=== PATIENT | female | born 1975 | race Caucasian/White ===

== ENCOUNTER 2016-08-17 16:37 | Emergency (ER) | payer OTHER ==
[~2016-08-17] VITALS: Ht 170.2 cm; Wt 87.8 kg
[2016-08-17 16:44] VITALS: TEMP 38.1; Ht 170.2 cm; Wt 87.8 kg
[2016-08-17] MEDS ORDERED: VNTHFA/IN INH (17:01)
[2016-08-17] MEDS ORDERED: LEVOTHYROXINE PO (17:01)
[2016-08-17] MEDS ORDERED: MONT1TAB3 PO (17:01)
[2016-08-17] MEDS ORDERED: OXYCODONE/ACETAMINOPHEN 5-325 TAB PO STA (17:09)
--- NOTE | 2016-08-17 18:11 | DIAGNOSTIC IMAGING REPORT ---
CHEST 2 VIEWS ROUTINE CLINICAL HISTORY: Cough. Sore throat. COMPARISON STUDY: No previous studies for comparison. FINDINGS: Lung volumes are normal. Lungs are clear. Pulmonary vascularity is normal. There is no pneumothorax or pleural effusion. Cardiomediastinal silhouette is normal. IMPRESSION: No acute cardiopulmonary findings. Electronically signed by: Joel Drake M.D. 08/17/2016 6:09 PM Dictated Date/Time: 08/17/2016 6:08 PM
[2016-08-17 18:58] LABS: INFLUENZA A PCR Neg for Influ A (NEG); INFLUENZA B PCR Neg for Influ B (NEG)
[2016-08-17 19:18] VITALS: BP 107/69; PULSE 88; O2SAT 93
[2016-08-17] MEDS ORDERED: AZITTAB PO (19:20)
[2016-08-17] MEDS ORDERED: AZITHROMYCIN 250 MG TAB PO STA (19:21)
--- NOTE | 2016-08-17 19:21 | EMERGENCY ROOM VISIT NOTE ---
History Report prepared by Bobbyibtho: Karina Thomas Under the Supervision of: Dr. Boris Dorman D.O. First contact with patient: 17:02 Chief Complaint: THROAT PAIN/INJURY Stated Complaint: UPPER CHEST/ESOPHOGUS PAIN,PAIN WHEN SWALLOWING History of Present Illness The patient is a 41 year old female who presents to the Emergency Room with complaints of persistent upper chest pain that began 2 days ago. The discomfort was initially a pressure which gradually became more painful. She has since developed throat pain and difficulty swallowing. Her throat pain worsens when she tries to swallow. Yesterday, the patient developed a fever. She went to Urgent Care for evaluation and her temperature was 103. She was told that her symptoms were related to a flu-like virus. This morning, her fever seemed to break, but her pain continued. Source of History: patient Onset: 2 days ago Position: chest (upper) Timing: other (persistent) Associated Symptoms: + fevers Note: Other symptoms: throat pain Review of Systems See HPI for pertinent positives & negatives. A total of 10 systems reviewed and were otherwise negative. Past Medical & Surgical Medical Problems: (1) Bronchitis Family History No pertinent family history stated. Social History Smoking Status: Current Every Day Smoker Marital Status: single Occupation Status: employed Current/Historical Medications Scheduled Albuterol Hfa (Ventolin Hfa), 2-4 PUFFS INH Q6H Azithromycin (Zithromax Z-Janak), 0 PO UD Montelukast Sodium (Singulair), 10 MG PO QPM [Levothyroxine], 1 TAB PO QAM Allergies Coded Allergies: No Known Allergies (Unverified , 08/17/16) Physical Exam Vital Signs Date Time Temp Pulse Resp B/P Pulse Ox O2 Delivery O2 Flow Rate FiO2 08/17/16 19:18 88 16 107/69 93 Room Air 08/17/16 17:49 95 16 93/65 96 Room Air 08/17/16 17:07 Room Air 08/17/16 16:44 38.1 99 20 137/82 95 Room Air Physical Exam CONSTITUTIONAL/VITAL SIGNS: Reviewed / noted above. GENERAL: Non-toxic in appearance. INTEGUMENTARY: Warm, dry, and [place]. HEAD: Normocephalic. EYES: without scleral icterus or trauma. ENT/OROPHARYNX: Mild posterior oropharyngeal erythema. LYMPHADENOPATHY/NECK: Is supple without lymphadenopathy or meningismus. RESPIRATORY: Lungs clear and equal. CARDIOVASCULAR: Regular rate and rhythm. GI/ABDOMEN: Soft and nontender. No organomegaly or pulsatile mass. No rebound or guarding. Normal bowel sounds. EXTREMITIES: Warm and well perfused. BACK: No CVA tenderness. NEUROLOGICAL: Intact without focal deficits. PSYCHIATRIC: normal affect. MUSCULOSKELETAL: Normally developed with good muscle tone. Medical Decision & Procedures ER Provider Diagnostic Interpretation: X ray results and stated below per my interpretation and radiology interpretation. CHEST 2 VIEWS ROUTINE CLINICAL HISTORY: Cough. Sore throat. COMPARISON STUDY: No previous studies for comparison. FINDINGS: Lung volumes are normal. Lungs are clear. Pulmonary vascularity is normal. There is no pneumothorax or pleural effusion. Cardiomediastinal silhouette is normal. IMPRESSION: No acute cardiopulmonary findings. Electronically signed by: Joel Drake M.D. 08/17/2016 6:09 PM Dictated Date/Time: 08/17/2016 6:08 PM Laboratory Results Test 08/17/16 17:10 Influenza Type A (RT-PCR) Neg for Influ A (NEG) Influenza Type B (RT-PCR) Neg for Influ B (NEG) Laboratory results as stated above per my review. Medications Administered Medications (Trade) Dose Ordered Sig/Jared Route Start Time Stop Time Status Last Admin Dose Admin Oxycodone/ Acetaminophen (Percocet 5-325mg Tab) 1 tab NOW STAT PO 08/17/16 17:09 08/17/16 17:11 DC 08/17/16 17:17 1 TAB Azithromycin (Zithromax Tab) 500 mg NOW STAT PO 08/17/16 19:21 08/17/16 19:22 DC 08/17/16 19:32 500 MG ED Course 1704: The patient was evaluated in room C8. A complete history and physical examination was performed. 1708: Ordered Oxycodone/Acetaminophen 1 tab PO. 1920: Ordered Azithromycin 500 mg PO. 1930: On reevaluation, the patient is resting comfortably. I discussed the results and findings with the patient. She verbalized agreement of the treatment plan. The patient was discharged home. Medical Decision Differential includes viral illness, influenza, streptococcal pharyngitis, meningitis, pneumonia, sinusitis, UTI, pyelonephritis, otitis media. This is a 41-year-old female who presents to the ED with a chief complaint of a sore throat and chest pain. The patient has a temperature of 38.1. Her throat is mildly erythematous but without exudate. Strep test was negative. Lungs were clear. A chest x-ray did not show any acute disease. Flu swab was negative. Patient's symptoms appear to be viral in origin. She is felt to be stable for discharge. Because of her continued symptoms, she was placed on Zithromax. Impression Primary Impression: Bronchitis Scribe Attestation The scribe's documentation has been prepared under my direction and personally reviewed by me in its entirety. I confirm that the note above accurately reflects all work, treatment, procedures, and medical decision making performed by me. Departure Information Dispostion Home / Self-Care Prescriptions Azithromycin (ZITHROMAX Z-JANAK) 250 Mg Tab 0 PO UD, #1 PKT 2 TABS DAY 1, THEN 1 TAB DAILY FOR 4 DAYS Prov: Boris Dorman D.O. 08/17/16 Referrals Pavan Bray D.O. (PCP) Patient Instructions Bronchitis Acute, My [facility] Additional Instructions Your symptoms are likely related to bronchitis. Zithromax as prescribed. Take Tylenol as needed for discomfort or fever.
== END 2016-08-17 19:46 | disposition home or self-care (01) ==
LOC: C.EDB 16:38 → C.EDC 19:46
DX: J40 Bronchitis, not specified as acute or chronic (principal); F17.200 Nicotine dependence, unspecified, uncomplicated

== ENCOUNTER 2016-08-19 13:53 | Emergency (ER) | payer OTHER ==
[~2016-08-19] VITALS: Ht 162.6 cm; Wt 85.9 kg
[~2016-08-19 13:53] MED LIST: AZITTAB PO; LEVOTHYROXINE PO; MONT1TAB3 PO; VNTHFA/IN INH
[2016-08-19 13:57] VITALS: Ht 162.6 cm; Wt 85.9 kg
[2016-08-19] MEDS ORDERED: SODIUM CHLORIDE 0.9% 1000ML 1,000 ML IV ONE (15:30)
[2016-08-19 16:12] LABS: BASO % 0.2 %; BASO ABS # 0.01 K/uL (0-0.2); COMPLETE YES; EOS % 0.2 %; HEMATOCRIT 42.9 % (37-47); IG% 0.2 %; LYMPH % 22.3 %; LYMPH ABS # 1.35 K/uL (1.2-3.4); MEAN CELL VOLUME 93.3 fL (80-100); MEAN CORPUSCULAR HEMOGLOBIN 32.4 pg (25-34); MEAN CORPUSCULAR HGB CONC 34.7 g/dl (32-36); MEAN PLATELET VOLUME 9.5 fL (7.4-10.4); MONO % 16.8 %; NEUT % 60.3 %; PLATELET COUNT 186 K/uL (130-400); WHITE BLOOD COUNT 6.06 K/uL (4.8-10.8)
[2016-08-19 16:29] LABS: BUN/CREATININE RATIO 15.9 (10-20); CALCIUM 9.1 mg/dl (8.5-10.1); CREATININE 0.8 mg/dl (0.60-1.20); POTASSIUM 3.8 mmol/L (3.5-5.1)
[2016-08-19] MEDS ORDERED: OPTIRAY 320 IV PRN (16:30)
[2016-08-19 16:32] LABS: ALB/GLOB RATIO 0.9 (0.9-2)
--- NOTE | 2016-08-19 16:40 | DIAGNOSTIC IMAGING REPORT ---
TWO VIEW CHEST CLINICAL HISTORY: Atypical chest pain. FINDINGS: PA and lateral chest radiographs are compared to study dated 08/17/2016. The cardiomediastinal silhouette is unremarkable. The lungs and pleural spaces are clear. There is no pneumothorax. The bony thorax appears intact. IMPRESSION: No active disease in the chest. Electronically signed by: Efra Nunez M.D. 08/19/2016 4:38 PM Dictated Date/Time: 08/19/2016 4:36 PM
--- NOTE | 2016-08-19 17:54 | DIAGNOSTIC IMAGING REPORT ---
CT ANGIOGRAM OF THE CHEST CLINICAL HISTORY: Atypical chest pain. COMPARISON STUDY: Chest x-ray dated 08/19/2016. TECHNIQUE: Following the IV administration of 78 cc of Optiray 320, CT angiogram of the chest was performed from the upper abdomen to the thoracic inlet utilizing the pulmonary embolus protocol. Images are reviewed in the axial, sagittal, and coronal planes. 3-D MIPS images are created and assessed. IV contrast was administered without complication. CT DOSE: 425.28 mGy.cm FINDINGS: Thyroid: Imaged portions of the thyroid gland are normal in size and attenuation. Thoracic aorta: The thoracic aorta is normal in caliber and demonstrates standard 3-vessel arch anatomy. No dissection is seen. Pulmonary vasculature: The pulmonary trunk is normal in caliber. There are no filling defects identified in main, lobar, or segmental pulmonary branches to suggest pulmonary embolus. Heart: The heart is normal in size and configuration, and without pericardial effusion. Lungs and pleural spaces: There is a trace right pleural effusion with foci of bibasilar atelectasis. No airspace consolidation is seen typical for pneumonia. Mild diffuse peribronchial thickening is noted. The trachea and central airways are clear. Mediastinum: There is no mediastinal lymphadenopathy. A prominent lymph node posterior to the esophagus and just above the esophageal hiatus is seen on image #78 and measures 9 mm short axis. Fatoumata: Clear. Axillae: There is no axillary lymphadenopathy. Upper abdomen: Numerous gallstones are identified. There is a small to moderate hiatal hernia. Wall thickening is suggested in the distal esophagus. There are mildly enlarged gastrohepatic lymph nodes which measure up to 1.3 cm in short axis Skeletal structures: No lytic or blastic bony lesions are seen. IMPRESSION: 1. There is no evidence of pulmonary embolus in the main, lobar, or segmental pulmonary arteries. 2. There is a trace right pleural effusion. No airspace consolidation is seen typical for pneumonia. Mild diffuse periosteal thickening suggests regular disease. Clinical correlation will be required. 3. There is a small to moderate hiatal hernia. Nonspecific stranding is suggested around the proximal stomach and there are mildly enlarged gastrohepatic lymph nodes. Additionally, wall thickening suggested in the distal esophagus. Correlate clinically for evidence of gastroesophagitis. GI follow-up is recommended. If further assessment is desired then endoscopy would be appropriate. 4. Cholelithiasis. Electronically signed by: Efra Nunez M.D. 08/19/2016 5:53 PM Dictated Date/Time: 08/19/2016 5:47 PM
[2016-08-19] MEDS ORDERED: GI COCKTAIL PO ONE (18:45)
[2016-08-19] MEDS ORDERED: LIDOCAINE HCL 2% VISC SOLN 20 ML UDC ONE (18:52)
[2016-08-19] MEDS ORDERED: ALUMINUM/MAGNESIUM SUSP 30 ML UDC ONE (18:52)
[2016-08-19 19:05] VITALS: BP 130/81; PULSE 85; O2SAT 97
--- NOTE | 2016-08-19 22:00 | EMERGENCY ROOM VISIT NOTE ---
History First contact with patient: 15:15 Chief Complaint: ILLNESS Stated Complaint: PAIN WHEN SWALLOWING, TROUBLE SPEAKING/BREATHING History of Present Illness The patient is a 41 year old female who presents to the Emergency Room with complaints of central chest pain for the past several days. The patient was initially seen and evaluated in the emergency department about 2 days ago where she was diagnosed with bronchitis. She was started on Zithromax. The patient states that she is having worsening of her symptoms. She describes it as a tightness in her central lower chest. The patient also states that she has pain when swallowing and trouble with deep breathing. She does not report significant fever or chills. The patient rates her overall discomfort a 5/10. She does not have recent travel history and is not on control. She does not have known exposure to disease. Her pain does not radiate. Review of Systems More than 10 systems were reviewed and otherwise negative with the exception of history of present illness. Past Medical/Surgical History Medical Problems: (1) Bronchitis Family History No pertinent family history Social History Smoking Status: Current Every Day Smoker Marital Status: single Occupation Status: employed Current/Historical Medications Scheduled Albuterol Hfa (Ventolin Hfa), 2-4 PUFFS INH Q6H Azithromycin (Zithromax Z-Janak), 0 PO UD Montelukast Sodium (Singulair), 10 MG PO QPM [Levothyroxine], 1 TAB PO QAM Allergies Coded Allergies: No Known Allergies (Unverified , 08/19/16) Physical Exam Vital Signs Date Time Temp Pulse Resp B/P Pulse Ox O2 Delivery O2 Flow Rate FiO2 08/19/16 19:05 85 20 130/81 97 08/19/16 17:42 79 18 122/77 98 Room Air 08/19/16 15:55 88 20 119/64 98 Room Air 08/19/16 13:57 37.3 91 18 136/86 96 Room Air Physical Exam VITALS: Vitals are noted on the nurse's note and reviewed by myself. Vital signs stable. GENERAL: Well-developed, well-nourished, white female, who is in no acute distress and resting comfortably. Patient is cooperative with the examination. HEAD: Normocephalic atraumatic. EARS: External ear normal. External auditory canals clear, tympanic membranes pearly johnson without erythema or effusion bilaterally. EYES: Pupils equal round and reactive to light and accommodation. Conjunctivae without injection, sclerae without icterus. Extraocular movements intact. NOSE: Patent, turbinates without inflammation or discharge. MOUTH: Mucous membranes moist. Tonsils are not enlarged. Pharynx without erythema, blood, or exudate. Uvula midline. Airway patent. NECK: Supple without nuchal rigidity. No lymphadenopathy. No thyromegaly. Cervical spine is nontender. HEART: Regular rate and rhythm without murmurs gallops or rubs. LUNGS: Clear to auscultation bilaterally without wheezes, rales or rhonchi. No retractions or accessory muscle use. ABDOMEN: Positive normal bowel sounds x 4. Soft with mild epigastric tenderness on palpation. No rebound or guarding. No lower abdominal tenderness. MUSCULOSKELETAL: No muscle atrophy, erythema, or edema noted. Full range of motion without joint tenderness in all extremities. Medical Decision & Procedures ER Provider Diagnostic Interpretation: TWO VIEW CHEST CLINICAL HISTORY: Atypical chest pain. FINDINGS: PA and lateral chest radiographs are compared to study dated 08/17/2016. The cardiomediastinal silhouette is unremarkable. The lungs and pleural spaces are clear. There is no pneumothorax. The bony thorax appears intact. IMPRESSION: No active disease in the chest. CT ANGIOGRAM OF THE CHEST CLINICAL HISTORY: Atypical chest pain. COMPARISON STUDY: Chest x-ray dated 08/19/2016. TECHNIQUE: Following the IV administration of 78 cc of Optiray 320, CT angiogram of the chest was performed from the upper abdomen to the thoracic inlet utilizing the pulmonary embolus protocol. Images are reviewed in the axial, sagittal, and coronal planes. 3-D MIPS images are created and assessed. IV contrast was administered without complication. CT DOSE: 425.28 mGy.cm FINDINGS: Thyroid: Imaged portions of the thyroid gland are normal in size and attenuation. Thoracic aorta: The thoracic aorta is normal in caliber and demonstrates standard 3-vessel arch anatomy. No dissection is seen. Pulmonary vasculature: The pulmonary trunk is normal in caliber. There are no filling defects identified in main, lobar, or segmental pulmonary branches to suggest pulmonary embolus. Heart: The heart is normal in size and configuration, and without pericardial effusion. Lungs and pleural spaces: There is a trace right pleural effusion with foci of bibasilar atelectasis. No airspace consolidation is seen typical for pneumonia. Mild diffuse peribronchial thickening is noted. The trachea and central airways are clear. Mediastinum: There is no mediastinal lymphadenopathy. A prominent lymph node posterior to the esophagus and just above the esophageal hiatus is seen on image #78 and measures 9 mm short axis. Fatoumata: Clear. Axillae: There is no axillary lymphadenopathy. Upper abdomen: Numerous gallstones are identified. There is a small to moderate hiatal hernia. Wall thickening is suggested in the distal esophagus. There are mildly enlarged gastrohepatic lymph nodes which measure up to 1.3 cm in short axis Skeletal structures: No lytic or blastic bony lesions are seen. IMPRESSION: 1. There is no evidence of pulmonary embolus in the main, lobar, or segmental pulmonary arteries. 2. There is a trace right pleural effusion. No airspace consolidation is seen typical for pneumonia. Mild diffuse periosteal thickening suggests regular disease. Clinical correlation will be required. 3. There is a small to moderate hiatal hernia. Nonspecific stranding is suggested around the proximal stomach and there are mildly enlarged gastrohepatic lymph nodes. Additionally, wall thickening suggested in the distal esophagus. Correlate clinically for evidence of gastroesophagitis. GI follow-up is recommended. If further assessment is desired then endoscopy would be appropriate. 4. Cholelithiasis. Laboratory Results 08/19/16 15:56 Red Blood Count 4.60, Mean Corpuscular Volume 93.3, Mean Corpuscular Hemoglobin 32.4, Mean Corpuscular Hemoglobin Concent 34.7, Mean Platelet Volume 9.5, Neutrophils (%) (Auto) 60.3, Lymphocytes (%) (Auto) 22.3, Monocytes (%) (Auto) 16.8, Eosinophils (%) (Auto) 0.2, Basophils (%) (Auto) 0.2, Neutrophils # (Auto ) 3.66, Lymphocytes # (Auto) 1.35, Monocytes # (Auto) 1.02, Eosinophils # (Auto ) 0.01, Basophils # (Auto) 0.01 08/19/16 15:56 Test 08/19/16 15:56 08/19/16 16:02 White Blood Count 6.06 K/uL (4.8-10.8) Red Blood Count 4.60 M/uL (4.2-5.4) Hemoglobin 14.9 g/dL (12.0-16.0) Hematocrit 42.9 % (37-47) Mean Corpuscular Volume 93.3 fL (80-100) Mean Corpuscular Hemoglobin 32.4 pg (25-34) Mean Corpuscular Hemoglobin Concent 34.7 g/dl (32-36) Platelet Count 186 K/uL (130-400) Mean Platelet Volume 9.5 fL (7.4-10.4) Neutrophils (%) (Auto) 60.3 % Lymphocytes (%) (Auto) 22.3 % Monocytes (%) (Auto) 16.8 % Eosinophils (%) (Auto) 0.2 % Basophils (%) (Auto) 0.2 % Neutrophils # (Auto) 3.66 K/uL (1.4-6.5) Lymphocytes # (Auto) 1.35 K/uL (1.2-3.4) Monocytes # (Auto) 1.02 K/uL (0.11-0.59) Eosinophils # (Auto) 0.01 K/uL (0-0.5) Basophils # (Auto) 0.01 K/uL (0-0.2) RDW Standard Deviation 45.5 fL (36.4-46.3) RDW Coefficient of Variation 13.3 % (11.5-14.5) Immature Granulocyte % (Auto) 0.2 % Immature Granulocyte # (Auto) 0.01 K/uL (0.00-0.02) Anion Gap 13.0 mmol/L (3-11) Est Creatinine Clear Calc Drug Dose 100.2 ml/min Estimated GFR () 107.6 Estimated GFR (Non- 92.9 BUN/Creatinine Ratio 15.9 (10-20) Calcium Level 9.1 mg/dl (8.5-10.1) Total Bilirubin 0.3 mg/dl (0.2-1) Aspartate Amino Transf (AST/SGOT) 15 U/L (15-37) Alanine Aminotransferase (ALT/SGPT) 18 U/L (12-78) Alkaline Phosphatase 56 U/L (45-117) Total Protein 7.7 gm/dl (6.4-8.2) Albumin 3.6 gm/dl (3.4-5.0) Globulin 4.1 gm/dl (2.5-4.0) Albumin/Globulin Ratio 0.9 (0.9-2) Lipase 95 U/L (73-393) Bedside D-Dimer > 450 ng/mlFEU (0-450) Bedside Troponin I 0.000 ng/ml (0-0.045) Medications Administered Medications (Trade) Dose Ordered Sig/Jared Route Start Time Stop Time Status Last Admin Dose Admin Sodium Chloride (Nss 1000ml) 1,000 ml @ 999 mls/hr Q1H1M ONCE IV 08/19/16 15:30 08/19/16 16:30 DC 08/19/16 15:30 999 MLS/HR Lidocaine HCl (Viscous Lidocaine 2% Soln) 20 ml STK-MED ONCE .ROUTE 08/19/16 18:52 08/19/16 18:54 DC 08/19/16 18:57 20 ML Al Hydroxide/Mg Hydroxide (Maalox Susp) 30 ml STK-MED ONCE .ROUTE 08/19/16 18:52 08/19/16 18:54 DC 08/19/16 18:57 30 ML ED Course Physical exam and history were performed. Nursing notes and EMR were reviewed. Patient appears to have central chest pain for the past several days. She does not appear toxic on examination. EKG was performed and was normal sinus rhythm without acute ST elevation or ischemia. IV access was established and labs were obtained. Chest x-ray was ordered. The patient has had difficulty swallowing the past several days, and I did elect to hydrate her with 1 L normal saline. The patient's blood work is as above and was reviewed. She does not have a significantly elevated white blood cell count, anemia, bandemia, or gross electrolyte imbalance. Lipase and transaminases are nondiagnostic. Troponin 1 is negative. The patient's d-dimer is elevated, and CT scan was ordered of the chest. The chest x-ray does not show significant acute findings. The patient's CT scan shows a hiatal hernia and esophagitis. There is also a small pleural effusion. Clinically the patient appears well, and she certainly is not significantly ill. She did not have worsening of her symptoms under our care here tonight. I discussed the patient's diagnostic findings at length with her. Evidently she does have a history of GERD, and this does seem to correlate with the esophagitis and her difficulty swallowing. Because of this she was given a GI cocktail here in the ER, which did improve her throat pain and swallowing discomfort. Regarding her chest symptoms I do feel that she likely has a viral infection, whether this be a flulike illness or bronchitis. She is currently on Zithromax and has inhalers at home. These appear reasonable, and she should continue taking these medications. She also takes Prevacid at home, and I recommended that she take a double dose of this medication. She will be referred to GI regarding her esophagitis. The patient was otherwise invited back to the ER with any new, worsening, or concerning symptoms. She voiced understanding and was pleased with plan of care. The chart was completed utilizing [employer] Voice Recognition Software. Grammatical errors, random word insertions, pronoun errors, and incomplete sentences are an occasional consequence of this system due to software limitations, ambient noise, and hardware issues. Any formal questions or concerns about the content, text, or information contained within the body of this dictation should be directly addressed to the provider for clarification. . Medical Decision Differential diagnosis includes, but is not limited to: Myocardial infarction, dysrhythmia, pericarditis, pneumothorax, aortic aneurysm/dissection, DVT/PE, anxiety, GERD, PUD, electrolyte imbalance, thyroid disorder, pneumonia, bronchitis, pancreatitis, and others Impression Primary Impression: Flu-like symptoms Additional Impression: Esophagitis Departure Information Referrals Pavan Bray D.O. (PCP) Patient Instructions My [facility] Problem Qualifiers
== END 2016-08-19 19:06 | disposition home or self-care (01) ==
LOC: C.EDB 13:55 → C.EDC 19:06
DX: K20.9 Esophagitis, unspecified (principal); R07.0 Pain in throat; R06.00 Dyspnea, unspecified; R07.9 Chest pain, unspecified; K21.9 Gastro-esophageal reflux disease without esophagitis; F17.210 Nicotine dependence, cigarettes, uncomplicated

== ENCOUNTER 2016-08-21 06:22 | Emergency (ER) | payer OTHER ==
[~2016-08-21] VITALS: Ht 162.6 cm; Wt 85.0 kg
[2016-08-21 06:25] VITALS: TEMP 36.5; Ht 162.6 cm; Wt 85.0 kg
[2016-08-21] MEDS ORDERED: LEVO100T7 PO (06:48)
[2016-08-21] MEDS ORDERED: LORA-741 PO (06:48)
[2016-08-21] MEDS ORDERED: ONDA4TAB10 PO (06:51)
[2016-08-21] MEDS ORDERED: IBUP-1050 PO (06:52)
[2016-08-21] MEDS ORDERED: LANS15TA2 PO (06:52)
[2016-08-21] MEDS ORDERED: CLR10 PO (06:52)
[2016-08-21] MEDS ORDERED: SODIUM CHLORIDE 0.9% 1000ML 1,000 ML IV STA ×2 (07:03)
[2016-08-21] MEDS ORDERED: ONDANSETRON INJ 2 MG/ML 2 ML VIAL IV STA (07:03)
[2016-08-21 07:14] LABS: BASO % 0.6 %; BASO ABS # 0.03 K/uL (0-0.2); COMPLETE YES; EOS % 1.2 %; HEMATOCRIT 41.7 % (37-47); MEAN CELL VOLUME 93.5 fL (80-100); MEAN CORPUSCULAR HEMOGLOBIN 32.3 pg (25-34); MEAN CORPUSCULAR HGB CONC 34.5 g/dl (32-36); MEAN PLATELET VOLUME 9.4 fL (7.4-10.4); MONO % 12.2 %; PLATELET COUNT 209 K/uL (130-400); RED BLOOD COUNT 4.46 M/uL (4.2-5.4)
[2016-08-21] MEDS: HYDROmorphone INJ 1 MG/ML SYR IV PRN ×2 (07:20→09:37)
--- NOTE | 2016-08-21 07:29 | EMERGENCY ROOM VISIT NOTE ---
History Report prepared by Hattie: [facility] Under the Supervision of: Dr. Jair Angel M.D. First contact with patient: 06:36 Chief Complaint: OTHER COMPLAINT Stated Complaint: POSSIBLE "STRANGULATED" HERNIA SYMPTOMS History of Present Illness The patient is a 41 year old female who presents to the Emergency Room with complaints of worsening epigastric abdominal pain starting 6 days ago and worsening today. She rates a pain intensity of 8/10. She was evaluated in the Emergency Room 2 days ago. She had a CT scan which showed esophagitis and a small to moderate hiatal hernia. She was discharged home. She has a follow up appointment with a civil geotechnical engineer in 2 days. The patient reports that her pain worsened today. She has difficulty swallowing even her spit. She has had a loss of appetite and a reduced fluid intake. She has a history of vaginal cyst removal and acid reflux. Pt denies LOC, headache, fevers, chills, diaphoresis, visual changes, neck pain, chest pain, breathing difficulties, nausea, vomiting , back pain, melena, hematochezia, urinary symptoms, numbness, weakness, lymphadenopathy, rash, or other complaints. Source of History: patient Onset: 6 days ago Position: abdomen (epigastric) Symptom Intensity: 8/10 Timing: worsening Review of Systems See HPI for pertinent positives and negatives. A total of ten systems were reviewed and were otherwise negative. Past Medical & Surgical Medical Problems: (1) Asthma (2) Bronchitis (3) GERD (gastroesophageal reflux disease) (4) Vaginal cyst Family History Diabetes mellitus Gallbladder disease Heart disease Hypertension Social History Smoking Status: Current Every Day Smoker Marital Status: single Occupation Status: employed Current/Historical Medications Scheduled Albuterol Hfa (Ventolin Hfa), 2-4 PUFFS INH Q6H Azithromycin (Zithromax Z-Janak), 0 PO UD Lansoprazole (Prevacid Solutab), 15 MG PO DAILY Levothyroxine Sodium (Levothyroxine Sodium), 1 TAB PO DAILY Loratadine (Claritin), 10 MG PO DAILY Montelukast Sodium (Singulair), 10 MG PO QPM Omeprazole (Prilosec), 40 MG PO BID Scheduled PRN Ibuprofen (Advil), 800 MG PO Q8 PRN for Pain Lorazepam (Ativan), 0.5 MG PO Q12 PRN for Anxiety Ondasetron Odt (Zofran Odt), 4 MG PO Q8 PRN for Nausea Oxycodone Ir (Roxicodone Ir), 1-2 TAB PO Q4H PRN for Pain Allergies Coded Allergies: No Known Allergies (Unverified , 08/21/16) Physical Exam Vital Signs Date Time Temp Pulse Resp B/P Pulse Ox O2 Delivery O2 Flow Rate FiO2 08/21/16 11:10 57 16 112/60 97 08/21/16 10:18 77 08/21/16 09:57 69 18 123/82 93 Room Air 08/21/16 08:06 58 20 107/58 97 Room Air 08/21/16 06:25 36.5 68 16 115/77 96 Room Air Physical Exam GENERAL: Awake, alert, well-appearing, in no distress HENT: Normocephalic, atraumatic. Oropharynx unremarkable. EYES: Normal conjunctiva. Sclera non-icteric. NECK: Supple. No nuchal rigidity. FROM. No JVD. RESPIRATORY: Clear to auscultation. CARDIAC: Regular rate, normal rhythm. Extremities warm and well perfused. Pulses equal. ABDOMEN: Soft, non-distended. Epigastric tenderness to palpation. No rebound or guarding. No masses. RECTAL: Deferred. MUSCULOSKELETAL: Chest examination reveals no tenderness. The back is symmetrical on inspection without obvious abnormality. There is no CVA tenderness to palpation. No joint edema. LOWER EXTREMITIES: Calves are equal size bilaterally and non-tender. No edema. No discoloration. NEURO: Normal sensorium. No sensory or motor deficits noted. SKIN: No rash or jaundice noted. Medical Decision & Procedures ER Provider Diagnostic Interpretation: CT: Radiology results as stated below per my review and radiologist interpretation CT ABD/PELVIS IV AND ORAL CONT CLINICAL HISTORY: Abdominal pain, most pronounced the level the epigastrium COMPARISON STUDY: None. TECHNIQUE: Following the IV administration of 92 mL of Optiray-320, CT scan of the abdomen and pelvis was performed from the lung bases to the proximal femurs. Images are reviewed in the axial, sagittal, and coronal planes. IV contrast was administered without complication. CT DOSE: 1087.16 mGycm FINDINGS: Lower chest: There are minor basilar atelectatic changes. There is distal esophageal wall thickening. Liver: The contrast-enhanced liver is normal in size, contour, and attenuation. There is no intrahepatic biliary ductal dilatation. The hepatic veins and portal veins are patent. There is focal fat adjacent the falciform ligament. Gallbladder: Cholelithiasis. No pericholecystic edema identified. Spleen: Normal in size and attenuation. Pancreas: Masses are visualized. The pancreatic duct measures 3 mm. There are no peripancreatic inflammatory changes. Adrenal glands: Unremarkable. Kidneys: There is symmetric renal cortical enhancement. The kidneys are normal in size without hydronephrosis. Bowel: There are no transition zones indicate bowel obstruction. The appendix appears normal. There are no findings to indicate acute diverticulitis. Peritoneum: There is no intraperitoneal free air or abdominal ascites. Vasculature: The abdominal aorta is normal in course and caliber. Adenopathy: None. Pelvic viscera: Several nabothian gland cysts are visualized within the cervix. No pathologic adnexal masses are visualized. There is a 2 cm right labial cyst. Skeletal structures: No destructive osseous lesions are seen. IMPRESSION: 1. No evidence of bowel obstruction. No evidence of free air 2. Distal esophageal wall thickening 3. Cholelithiasis 4. Normal appendix 5. 2 cm right labial cyst. 6. Nabothian gland cysts. Electronically signed by: Casey Monreal M.D. 08/21/2016 10:00 AM Dictated Date/Time: 08/21/2016 9:54 AM Laboratory Results 08/21/16 06:57 Red Blood Count 4.46, Mean Corpuscular Volume 93.5, Mean Corpuscular Hemoglobin 32.3, Mean Corpuscular Hemoglobin Concent 34.5, Mean Platelet Volume 9.4, Neutrophils (%) (Auto) 48.0, Lymphocytes (%) (Auto) 38.0, Monocytes (%) (Auto) 12.2, Eosinophils (%) (Auto) 1.2, Basophils (%) (Auto) 0.6, Neutrophils # (Auto ) 2.40, Lymphocytes # (Auto) 1.90, Monocytes # (Auto) 0.61, Eosinophils # (Auto ) 0.06, Basophils # (Auto) 0.03 08/21/16 06:57 Test 08/21/16 06:57 08/21/16 07:25 White Blood Count 5.00 K/uL (4.8-10.8) Red Blood Count 4.46 M/uL (4.2-5.4) Hemoglobin 14.4 g/dL (12.0-16.0) Hematocrit 41.7 % (37-47) Mean Corpuscular Volume 93.5 fL (80-100) Mean Corpuscular Hemoglobin 32.3 pg (25-34) Mean Corpuscular Hemoglobin Concent 34.5 g/dl (32-36) Platelet Count 209 K/uL (130-400) Mean Platelet Volume 9.4 fL (7.4-10.4) Neutrophils (%) (Auto) 48.0 % Lymphocytes (%) (Auto) 38.0 % Monocytes (%) (Auto) 12.2 % Eosinophils (%) (Auto) 1.2 % Basophils (%) (Auto) 0.6 % Neutrophils # (Auto) 2.40 K/uL (1.4-6.5) Lymphocytes # (Auto) 1.90 K/uL (1.2-3.4) Monocytes # (Auto) 0.61 K/uL (0.11-0.59) Eosinophils # (Auto) 0.06 K/uL (0-0.5) Basophils # (Auto) 0.03 K/uL (0-0.2) RDW Standard Deviation 45.5 fL (36.4-46.3) RDW Coefficient of Variation 13.2 % (11.5-14.5) Immature Granulocyte % (Auto) 0.0 % Immature Granulocyte # (Auto) 0.00 K/uL (0.00-0.02) Anion Gap 9.0 mmol/L (3-11) Est Creatinine Clear Calc Drug Dose 99.6 ml/min Estimated GFR () 107.6 Estimated GFR (Non- 92.9 BUN/Creatinine Ratio 15.3 (10-20) Calcium Level 8.9 mg/dl (8.5-10.1) Total Bilirubin 0.3 mg/dl (0.2-1) Direct Bilirubin < 0.1 mg/dl (0-0.2) Aspartate Amino Transf (AST/SGOT) 13 U/L (15-37) Alanine Aminotransferase (ALT/SGPT) 19 U/L (12-78) Alkaline Phosphatase 55 U/L (45-117) Total Protein 7.7 gm/dl (6.4-8.2) Albumin 3.5 gm/dl (3.4-5.0) Lipase 117 U/L (73-393) Urine Color DK YELLOW Urine Appearance CLEAR (CLEAR) Urine pH 6.0 (4.5-7.5) Urine Specific Mary Alice 1.034 (1.000-1.030) Urine Protein 1+ (NEG) Urine Glucose (UA) NEG (NEG) Urine Ketones 4+ (NEG) Urine Occult Blood TRACE (NEG) Urine Nitrite NEG (NEG) Urine Bilirubin NEG (NEG) Urine Urobilinogen NEG (NEG) Urine Leukocyte Esterase NEG (NEG) Urine WBC (Auto) 1-5 /hpf (0-5) Urine RBC (Auto) 0-4 /hpf (0-4) Urine Hyaline Casts (Auto) /lpf (0-5) Urine Epithelial Cells (Auto) >30 /lpf (0-5) Urine Bacteria (Auto) NEG (NEG) Urine Pathogenic Casts /lpf (0) Urine Mucus PRESENT (NONE PRSENT) Urine Test NEG (NEG) Laboratory results reviewed by me Medications Administered Medications (Trade) Dose Ordered Sig/Jared Route Start Time Stop Time Status Last Admin Dose Admin Ondansetron HCl (Zofran Inj) 4 mg NOW STAT IV 08/21/16 07:03 08/21/16 07:05 DC 08/21/16 07:20 4 MG Hydromorphone HCl 1 mg 1 mg Q15M PRN IV 08/21/16 07:15 08/21/16 11:32 DC 08/21/16 09:37 1 MG Sodium Chloride 1,000 ml @ 125 mls/hr Q8H STAT IV 08/21/16 07:03 08/21/16 11:32 DC 08/21/16 07:03 125 MLS/HR Sodium Chloride (Nss 1000ml) 1,000 ml @ 999 mls/hr Q1H1M STAT IV 08/21/16 07:03 08/21/16 08:03 DC 08/21/16 07:19 999 MLS/HR ECG Indication: abdominal pain Rate (beats per minute): 53 Rhythm: sinus bradycardia Findings: no acute ischemic change, no ectopy ED Course 0636: The patient was evaluated in room B08. A complete history and physical exam was performed. 0703: Sodium Chloride 1000 ml @ 999 mls/hr IV, Sodium Chloride 1000 ml @ 125 mls /hr IV, Zofran Inj 4 mg IV 0715: Dilaudid Inj 1 mg IV 0817: The patient's pain has improved. 1035: I discussed the patient's case with INDRA Villarreal. 1055: I reevaluated the patient. Discussed results and discharge instructions: She verbalized understanding and agreement. The patient is ready for discharge. Medical Decision Triage Nursing notes reviewed. The patient's presentation and history were concerning for abdominal pain. Etiologies such as esophagitis, gastritis, strangulated hernia, PUD, biliary pathology, pancreatitis,appendicitis, diverticulitis, obstruction, inflammatory bowel disease, renal colic, mesenteric ischemia, aortic pathology , infections, genitourinary, UTI, perforated viscus, as well as others were entertained. Prior records were reviewed. The patient has esophagitis and gastritis of the proximal portion of the stomach on previous imaging. She only has a small hiatal hernia. Her symptoms have progressed significantly by her report. She was treated with IV Zofran, IV Dilaudid, and normal saline. Blood work was obtained. Imaging was performed. The patient felt significantly better. Imaging revealed some esophagitis of the distal esophagus. On reassessment the patient was able to tolerate fluids without difficulty. There is no suggestion of food bolus. Consultation was made with [facility] gastroenterology. The case was discussed. She will have her Prevacid discontinued and will start high -dose Prilosec 40 mg twice a day. The patient also use [id number] Gaviscon. I did give a small amount of oxycodone pain medicine for her. PDMP review was negative. The patient has an appointment the day after tomorrow with [facility] gastroenterology. If she worsens in any way she will be back to the Emergency Room for reevaluation. By the evaluation outlined above other emergent etiologies such as those listed in the differential, as well as others, were deemed relatively unlikely. The patient and significant other were informed about the findings as listed above. All questions were answered and they were pleased with the treatment. Return instructions were outlined and the patient was discharged in stable condition. The patient was referred to gastroenterology for follow-up the day after tomorrow for a recheck of the current condition. The chart was completed utilizing [employer] voice recognition software. Grammatical errors, random word insertions, pronoun errors, and incomplete sentences are an occasional consequence of this system due to software limitations, ambient noise, and hardware issues. Any formal questions or concerns about the content, text, or information contained within the body of this dictation should be directly addressed to the physician for clarification. Consults Time Called: 1030 Consulting Physician: INDRA Villarreal Returned Call: 1035 I discussed the patient's case with INDRA Villarreal. Impression Primary Impression: Esophagitis Scribe Attestation The scribe's documentation has been prepared under my direction and personally reviewed by me in its entirety. I confirm that the note above accurately reflects all work, treatment, procedures, and medical decision making performed by me. Departure Information Dispostion Home / Self-Care Prescriptions Oxycodone Ir (Roxicodone Ir) 5 Mg Tab 1-2 TAB PO Q4H Y for Pain, #15 TAB Prov: Jair Angel MD 08/21/16 Omeprazole (PRILOSEC) 40 Mg Cap 40 MG PO BID, #60 CAP Prov: Jair Angel MD 08/21/16 Referrals Pavan Bray D.O. (PCP) Forms HOME CARE DOCUMENTATION FORM, IMPORTANT VISIT INFORMATION, WORK / SCHOOL INSTRUCTIONS Patient Instructions My [facility] Additional Instructions Diagnosis: 1. Severe esophagitis DO NOT drive, drink alcohol, operate machinery, or perform dangerous activities today. You were given medications in the ER that can affect your ability to safely function or operate a vehicle. Oxycodone (OxyIR) 5mg: Take 1-2 pills every four hours for breakthrough pain. Avoid alcohol, operating machinery or dangerous equipment, working on ladders or roofs, DRIVING, or situations where being under the influence may be dangerous. It is recommended to use an [id number] stool softener such as Colace, 100mg twice daily while taking this medication to avoid constipation. Acetaminophen(Tylenol) may be used for fever or pain. Use 1000mg every six hours as needed. Avoid using more than 4000mg in a 24 hour period. Prilosec 40 mg twice daily until directed otherwise by GI Stop the Prevacid [id number]. Use Gaviscon [id number] as needed for discomfort. This may minimize the use of the stronger pain medicine. Rest and drink plenty of fluids as tolerated. Slow sips of water or sports drinks are recommended instead of large amounts all at once. Continue current medications. Once your stomach is settled start with a clear liquid diet (jello, soup broth, etc.) and then advance as tolerated. You should avoid full, heavy meals for about 24 hrs from the time your symptoms resolved. Return to the ER immediately for worsening or persistent abdominal pain, vomiting, fevers, chest pains, difficulty breathing, black or bloody stools, worsening of your condition, or as needed. Follow up with your GI appointment as scheduled in 2 days for a recheck of your current condition.
[2016-08-21 07:30] LABS: ALT/SGPT 19 U/L (12-78); AST/SGOT 13 U/L (15-37); BLOOD UREA NITROGEN 12 mg/dl (7-18); BUN/CREATININE RATIO 15.3 (10-20); CALCIUM 8.9 mg/dl (8.5-10.1); CARBON DIOXIDE 27 mmol/L (21-32); CHLORIDE 105 mmol/L (98-107); GLUCOSE 80 mg/dl (70-99); POTASSIUM 3.9 mmol/L (3.5-5.1); SODIUM 141 mmol/L (136-145)
[2016-08-21 07:33] LABS: ALKALINE PHOSPHATASE 55 U/L (45-117)
[2016-08-21 07:47] LABS: URINE APPEARANCE CLEAR (CLEAR); URINE COLOR DK YELLOW; URINE EPITHELIAL CELL AUTO >30 /lpf (0-5); URINE NITRITE NEG (NEG); URINE SPECIFIC GRAVITY 1.034 (1.000-1.030); UROBILINOGEN NEG (NEG); ZZUR CULT IF INDIC CLEAN CATCH NO
[2016-08-21 07:54] LABS: MANUAL MICROSCOPIC REQUIRED? NO; REVIEW REQ? YES
[2016-08-21 07:55] LABS: URINE BILIRUBIN NEG (NEG)
[2016-08-21 07:58] LABS: URINE MUCUS PRESENT (NONE PRSENT)
--- NOTE | 2016-08-21 10:02 | DIAGNOSTIC IMAGING REPORT ---
CT ABD/PELVIS IV AND ORAL CONT CLINICAL HISTORY: Abdominal pain, most pronounced the level the epigastrium COMPARISON STUDY: None. TECHNIQUE: Following the IV administration of 92 mL of Optiray-320, CT scan of the abdomen and pelvis was performed from the lung bases to the proximal femurs. Images are reviewed in the axial, sagittal, and coronal planes. IV contrast was administered without complication. CT DOSE: 1087.16 mGycm FINDINGS: Lower chest: There are minor basilar atelectatic changes. There is distal esophageal wall thickening. Liver: The contrast-enhanced liver is normal in size, contour, and attenuation. There is no intrahepatic biliary ductal dilatation. The hepatic veins and portal veins are patent. There is focal fat adjacent the falciform ligament. Gallbladder: Cholelithiasis. No pericholecystic edema identified. Spleen: Normal in size and attenuation. Pancreas: Masses are visualized. The pancreatic duct measures 3 mm. There are no peripancreatic inflammatory changes. Adrenal glands: Unremarkable. Kidneys: There is symmetric renal cortical enhancement. The kidneys are normal in size without hydronephrosis. Bowel: There are no transition zones indicate bowel obstruction. The appendix appears normal. There are no findings to indicate acute diverticulitis. Peritoneum: There is no intraperitoneal free air or abdominal ascites. Vasculature: The abdominal aorta is normal in course and caliber. Adenopathy: None. Pelvic viscera: Several nabothian gland cysts are visualized within the cervix. No pathologic adnexal masses are visualized. There is a 2 cm right labial cyst. Skeletal structures: No destructive osseous lesions are seen. IMPRESSION: 1. No evidence of bowel obstruction. No evidence of free air 2. Distal esophageal wall thickening 3. Cholelithiasis 4. Normal appendix 5. 2 cm right labial cyst. 6. Nabothian gland cysts. Electronically signed by: Casey Monreal M.D. 08/21/2016 10:00 AM Dictated Date/Time: 08/21/2016 9:54 AM
[2016-08-21] MEDS ORDERED: OXYC1TAB3 PO (10:51)
[2016-08-21] MEDS ORDERED: OMEP40CA41 PO (10:51)
[2016-08-21 11:10] VITALS: BP 112/60; PULSE 57; O2SAT 97
== END 2016-08-21 11:12 | disposition home or self-care (01) ==
LOC: C.EDB 06:23
DX: K20.9 Esophagitis, unspecified (principal); J45.909 Unspecified asthma, uncomplicated; K21.9 Gastro-esophageal reflux disease without esophagitis; F17.210 Nicotine dependence, cigarettes, uncomplicated; Z79.899 Other long term (current) drug therapy